=== PATIENT | female | born 1945 | race Caucasian/White ===

== ENCOUNTER 2016-11-03 16:54 | Inpatient (IN) ==
[2016-11-03] MEDS ORDERED: ASPIRIN 325 MG TABLET PO STA (17:26)
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
[2016-11-03] MEDS ORDERED: ASPIRIN 325 MG TABLET ONE (17:52)
[2016-11-03 17:59] LABS: Basophils % 0.4 % (0.0-0.8); Eosinophils # 0.1 10*3/uL (0.0-0.87); Eosinophils % 1.1 % (0.00-10.9); Hematocrit 43.5 VOL% (35.7-47.0); Hemoglobin 15.3 GM/DL (12.0-16.0); Immature Granulocytes % 0.4 %; Immature Granulocytes Absolute 0.03 #; Lymphocytes # 1.7 10*3/uL (1.4-4.0); Lymphocytes % 23.3 % (21.3-54.2); Mean Corpuscular HGB Conc 35.2 GM/DL (32-36); Mean Corpuscular Hemoglobin 31 PG (27-34); Mean Corpuscular Volume 88.8 FL (87-102); Mean Platelet Volume 10.1 FL (9.6-12.0); Monocytes # 0.5 10*3/uL (0.11-0.8); Monocytes % 7.1 % (1.7-12.7); Neutrophils # 5.1 10*3/uL (1.4-7.4); Neutrophils % 67.7 % (38.7-73.9); Platelet Count 182 T/CUMM (130-400); Red Cell Distribution Width 12.9 % (9.3-17.3); White Blood Count 7.5 T/CUMM (4-12)
[2016-11-03 18:23] LABS: Alanine Aminotransferase 28 U/L (13-56); Albumin 4.1 G/DL (3.4-5.0); Alkaline Phosphatase 100 U/L (45-117); Aspartate Amino Transferase 20 U/L (0-37); Blood Urea Nitrogen 10 MG/DL (7-18); Calcium 9.7 MG/DL (8.5-10.1); Glucose 97 MG/DL (74-106); Osmolality,Calculated 284.8 MOS/KG (273-304); Potassium 3.6 MMOL/L (3.5-5.1); Sodium 144 MMOL/L (136-145); Total Protein 7.6 G/DL (6.4-8.3); Troponin I Only < 0.015 NG/ML (0.00-0.045)
[2016-11-03] MEDS ORDERED: DIGOXIN 0.5 MG/2 ML AMP IV STA (18:44)
--- NOTE | 2016-11-03 18:48 | XRay Report ---
Referring Physician: Buster Olvera Exam: XR chest 1V portable Date: November 03, 2016 at 5:32 PM Reason: Shortness of breath Comparison: Chest PA lateral November 26, 2009 Findings: The cardiac silhouette is upper normal in size. The lungs are hyperexpanded, which can be seen in COPD. Minimal scarring is suspected within both lungs, and there is mild stable pleural thickening at the lung apices. However, no focal consolidation, pneumothorax or pleural effusion is identified. No acute osseous process is seen. Impression: Chronic changes are present, including persistent hyperinflation of the lungs which can be seen in COPD. PROCEDURE INTERPRETED AT [facility] DEPARTMENT OF RADIOLOGY Final Report Signed by: Dr. Isaac Holloway
[2016-11-03] MEDS ORDERED: DIGOXIN 0.5 MG/2 ML AMP ONE (19:00)
--- NOTE | 2016-11-03 20:52 | CT Report ---
Referring physician: Karlo Dawkins Exam: CT brain without contrast Date: November 03, 2016 Comparison: None Reason: Acute dizziness, history of atrial fibrillation The patient is an Emergency Department patient on November 03, 2016. Technique: Axial images of the head were obtained without the use of contrast. Total DLP was 942.4 mGy*cm. Findings: No hydrocephalus or midline shift is present. There is no evidence of an acute infarction, recent intracranial hemorrhage or abnormal mass effect. The osseous structures appear intact. The visualized paranasal sinuses and right mastoid air cells are clear. There is fluid within the left mastoid air cells, which could represent mastoiditis. Impression: 1. No acute intracranial process is identified. 2. There is fluid within the left mastoid air cells which may represent mastoiditis. The CT exam was performed using one or more of the following dose reduction techniques: Automated exposure control and adjustment of the mA and/or kV according to patient size. PROCEDURE INTERPRETED AT [facility] DEPARTMENT OF RADIOLOGY Final Report Signed by: Dr. Isaac Holloway
[2016-11-03] MEDS ORDERED: CLINDAMYCIN 300 MG CAPSULE PO STA (21:13)
[2016-11-03] MEDS ORDERED: methylPREDNISolone SOD SUC 125 MG/2 ML VIAL IV STA (21:13)
[2016-11-03] MEDS ORDERED: methylPREDNISolone SOD SUC 125 MG/2 ML VIAL ONE (21:34)
[2016-11-03] MEDS ORDERED: CLINDAMYCIN 300 MG CAPSULE ONE (21:34)
[2016-11-03] MEDS ORDERED: ONDANSETRON 4 MG/2 ML VIAL IV PRN (21:49)
[2016-11-04] MEDS: CLINDAMYCIN INJ 900 MG in PREMIX 1 EACH IV SCH ×3 (03:57→20:59)
--- NOTE | 2016-11-04 07:20 | EKG Report ---
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
[2016-11-04 09:01] LABS: Basophils % 0.2 % (0.0-0.8); Hemoglobin 15.6 GM/DL (12.0-16.0); Immature Granulocytes % 0.5 %; Immature Granulocytes Absolute 0.03 #; Lymphocytes # 0.8 10*3/uL (1.4-4.0); Lymphocytes % 13.2 % (21.3-54.2); Mean Corpuscular HGB Conc 34.7 GM/DL (32-36); Mean Corpuscular Hemoglobin 31 PG (27-34); Mean Platelet Volume 9.8 FL (9.6-12.0); Monocytes # 0.1 10*3/uL (0.11-0.8); Neutrophils # 5.3 10*3/uL (1.4-7.4); Neutrophils % 85.1 % (38.7-73.9); Platelet Count 194 T/CUMM (130-400); Red Cell Distribution Width 13.1 % (9.3-17.3); White Blood Count 6.3 T/CUMM (4-12)
[2016-11-04] MEDS: PANTOPRAZOLE 40 MG TABLET PO SCH (09:01)
[2016-11-04] MEDS: ASPIRIN EC 325 MG TABLET PO SCH (09:01)
--- NOTE | 2016-11-04 09:06 | EKG Report ---
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
[2016-11-04 09:11] LABS: PT Patient Result 10.6 SECS; Partial Thromboplastin Time 25.2 SECS (0-40)
[2016-11-04 09:34] LABS: Troponin I Only < 0.015 NG/ML (0.00-0.045)
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
[2016-11-04] MEDS: LISINOPRIL 5 MG TABLET PO SCH (11:39)
[2016-11-04] MEDS ORDERED: PRAVASTATIN 40 MG TABLET PO SCH (21:00)
[2016-11-05] MEDS: CLINDAMYCIN INJ 900 MG in PREMIX 1 EACH IV SCH ×2 (03:58→12:54)
[2016-11-05 06:16] LABS: Basophils % 0.1 % (0.0-0.8); Eosinophils % 0.5 % (0.00-10.9); Hematocrit 39.8 VOL% (35.7-47.0); Immature Granulocytes % 0.6 %; Immature Granulocytes Absolute 0.05 #; Lymphocytes # 2.1 10*3/uL (1.4-4.0); Lymphocytes % 23.5 % (21.3-54.2); Mean Corpuscular HGB Conc 34.2 GM/DL (32-36); Mean Corpuscular Hemoglobin 31 PG (27-34); Mean Corpuscular Volume 90.7 FL (87-102); Mean Platelet Volume 10.3 FL (9.6-12.0); Monocytes # 0.8 10*3/uL (0.11-0.8); Monocytes % 9.6 % (1.7-12.7); Neutrophils # 5.8 10*3/uL (1.4-7.4); Neutrophils % 65.7 % (38.7-73.9); Platelet Count 165 T/CUMM (130-400); Red Blood Count 4.39 MC/CUMM (3.8-5.5); Red Cell Distribution Width 13.1 % (9.3-17.3)
[2016-11-05 06:32] LABS: Hemoglobin 13.6 GM/DL (12.0-16.0); White Blood Count 8.8 T/CUMM (4-12)
[2016-11-05 07:00] LABS: Calcium 8.3 MG/DL (8.5-10.1); Free T4 (Free Thyroxine) 1.13 NG/DL (0.76-1.46); Magnesium 2.3 MG/DL (1.8-2.4); Osmolality,Calculated 284.1 MOS/KG (273-304); Thyroid Stimulating Hormone 0.827 uIU/ml (0.358-3.74)
[2016-11-05] MEDS: PANTOPRAZOLE 40 MG TABLET PO SCH (08:33)
[2016-11-05] MEDS: LISINOPRIL 5 MG TABLET PO SCH (08:34)
[2016-11-05] MEDS: ASPIRIN EC 325 MG TABLET PO SCH (08:34)
[2016-11-05 11:39] VITALS: BP 137/69
[2016-11-05] MEDS ORDERED: FLECAINIDE 50 MG TABLET PO SCH (13:00)
--- NOTE | 2016-11-05 13:01 | Discharge Summary ---
Hospital Course - Hospital Course Hospital Course: 71-year-old patient with paroxysmal atrial fibrillation. She is been tried on different medications but has issues with some bradycardia. She presented to the emergency room and was given digoxin for atrial fibrillation with rapid ventricular response and on doing so she became bradycardic but sinus rhythm. Since then her heart rates and for the most part been in the 40s to 50s. She is asymptomatic with this. Blood pressures doing well. At issue is been treatment that will not affect her heart rates. Dr. Molina had discussed with her placing her on sotalol but this would adversely affect her heart rates. She then placed on Cardizem CD [address] Molina and her recent visit but did not started even though she got it filled. She been on digoxin. He is supposed to stop the digoxin prior to starting the Cardizem. Again it issue is her heart rates. I had discussed with Dr. Molina yesterday about starting the patient on flecainide at low dose to see how she would respond and if this would work for her paroxysmal atrial fibrillation without causing bradycardia. I am concerned that other medications would affect her rhythm or she cannot afford it. Causes a very big issue for the patient. I did discuss with her and her that she may wind up with a dual-chamber pacemaker. This certainly may be of great benefit with her and allow us to at least use of the medications for treatment. She has a lot of concerns about a pacemaker feeling that he would limit a lot of things but I think she has some incorrect notions about the pacemaker which hopefully I have been able to help him with her concerns. Her PFTs have been done this morning with report is not available. On my looking over them they do not appear to be significant. I did discuss with the patient and her that if she has recurrent symptomatology or problems to let Dr. Molina or let us know here at the hospital. - Time spent with patient Time with patient DS: Greater than 30 minutes Diagnosis - Discharge Diagnosis (1) Bradycardia Status: Acute (2) Paroxysmal atrial fibrillation with rapid ventricular response Status: Acute (3) Hypertension Status: Chronic (4) Hyperlipidemia Status: Chronic (5) Contraindication to anticoagulation therapy Status: Chronic Discharge Plan - Discharge Data Disposition: Disch To Home/Self Care Condition at Discharge: Stable Discharge Diet: advance to your usual diet Activity: resume usual activities as tolerated Hygiene: no restrictions Weight Bearing at Discharge: full weight bearing Driving: no restrictions Contact your physician if you experience:: Shortness of breath - Discharge Medications New Flecainide [Tambocor] 50 mg PO BID #60 tablet Clindamycin Cap [Cleocin Cap] 300 mg PO Q8HR #30 capsule predniSONE TAB [PredniSONE] 20 mg PO DAILY #15 tablet Continue Pravastatin [Pravachol] 20 mg PO BEDTIME HYDROcodone/ACETAMIN 10-325 [[place] 10-325] 1 tablet PO BID PRN PRN Reason: Pain Lisinopril 5 mg PO DAILY Aspirin EC Tab 81 mg PO DAILY Discontinued Digoxin Tab [Lanoxin Tab] 1 tablet PO AC LUNCH - Follow Up or Referral Follow Up: Jonna Molina MD [Physician] - 2 Weeks (Follow Dr. Molina in 2 weeks with ECG) - Forms/Instructions Exam - Constitutional Vitals: Period Temp Pulse Resp BP Sys/Hernandez Pulse Ox Last 24 Hr 96.0 F-97.5 F 50-64 16-18 118-143/55-77 97-99 Exam: General appearance: normal weight, no acute distress HEENT exam: normal inspection, atraumatic. She has marked decreased auditory acuity. Neck exam: normal inspection no JVD. No carotid bruit. Trachea is in midline Respiratory/lungs exam: clear to auscultation bilaterally good air movement. Cardiovascular exam: regular rate and rhythm, she has though bradycardic, no murmur or gallop or rub. No precordial lift. Chest wall exam: nontender GI/Abdominal exam: normal bowel sounds, soft, nontender, no abdominal bruits or pulsatile masses. Extremeties/musculoskeletal: normal inspection without edema or cyanosis. Neurological exam: alert, oriented X3, no focal deficits Psychiatric exam: normal affect, normal mood. Cognitive function is grossly normal. Skin exam: normal color, warm Discharge Results Procedures and tests throughout hospitalization: Pending Orders 11/06/16 04:00 BMP w/ Mg [Basic Metabolic Panel w/Mg] IN AM CBC [Comp Blood Count Auto Diff] IN AM Labs on day of discharge: Labs from last 24 hours 11/05/16 11/05/16 05:46 05:46 WBC 8.8 D RBC 4.39 Hgb 13.6 D Hct 39.8 MCV 90.7 MCH 31 MCHC 34.2 RDW 13.1 Plt Count 165 MPV 10.3 Neut % (Auto) 65.7 Lymph % (Auto) 23.5 [place] % (Auto) 9.6 Eos % (Auto) 0.5 Baso % (Auto) 0.1 Neut # (Auto) 5.8 Lymph # (Auto) 2.1 [place] # (Auto) 0.8 Eos # (Auto) 0.0 Baso # (Auto) 0.0 Immature Gran % 0.6 Nucleated RBC % 0.0 Immature Gran # 0.05 Nucleated RBCs # 0.00 Sodium 142 Potassium 4.0 Chloride 104 Carbon Dioxide 30 Anion Gap 12.0 BUN 18 Creatinine 0.80 GFR Calculation 68 BUN/Creatinine Ratio 22.00 H Glucose 104 Calculated Osmolality 284.1 Calcium 8.3 L Magnesium 2.3 Free T4 1.13 TSH 3rd Generation 0.827 DS: Provider Date of admission: 11/03/16 21:47 Primary care physician: . No PCP Attending physician on admission: Jonna Molina, Discharging clinician: Nikki Silva Expected date of discharge: 11/05/16
== END 2016-11-05 14:46 | disposition home or self-care (01) | DRG 310 ==
LOC: N.ED 16:54 → N.EDINP 21:47 → N.TELEN 23:00
PROVIDERS: ADMIT Internal Medicine Cardiovascular Disease; ATTEND Internal Medicine Cardiovascular Disease

== ENCOUNTER 2017-06-25 20:46 | Inpatient (IN) ==
[2017-06-25] MEDS ORDERED: ONDANSETRON 4 MG/2 ML VIAL IV STA (21:29)
[2017-06-25] MEDS ORDERED: SODIUM CHLORIDE 0.9% 500 ML IV STA (21:29)
[2017-06-25] MEDS ORDERED: NITROGLYCERIN 2% OINT 1 INCH/GM PACK TOP STA (21:29)
[2017-06-25] MEDS ORDERED: METOPROLOL TARTRATE 25 MG TABLET PO STA (21:29)
[2017-06-25] MEDS ORDERED: MORPHINE 2 MG/1 ML SYRINGE IV STA (21:29)
[2017-06-25] MEDS ORDERED: ASPIRIN 325 MG TABLET PO STA (21:29)
[2017-06-25] MEDS ORDERED: NITROGLYCERIN 2% OINT 1 INCH/GM PACK TOP ONE (21:55)
[2017-06-25] MEDS ORDERED: MORPHINE 2 MG/1 ML SYRINGE ONE (21:55)
[2017-06-25] MEDS ORDERED: METOPROLOL TARTRATE 25 MG TABLET ONE (21:55)
[2017-06-25] MEDS ORDERED: ONDANSETRON 4 MG/2 ML VIAL ONE (21:55)
[2017-06-25] MEDS ORDERED: ASPIRIN 325 MG TABLET ONE (21:56)
[2017-06-25 22:00] LABS: Basophils # 0.1 10*3/uL (0.0-0.2); Basophils % 0.7 % (0.0-0.8); Eosinophils # 0.1 10*3/uL (0.0-0.87); Eosinophils % 1.3 % (0.00-10.9); Hematocrit 39.6 VOL% (35.7-47.0); Hemoglobin 13.1 GM/DL (12.0-16.0); Immature Granulocytes % 0.3 %; Immature Granulocytes Absolute 0.02 #; Lymphocytes # 1.7 10*3/uL (1.4-4.0); Lymphocytes % 25.4 % (21.3-54.2); Mean Corpuscular HGB Conc 33.1 GM/DL (32-36); Mean Corpuscular Hemoglobin 29 PG (27-34); Mean Corpuscular Volume 88.6 FL (87-102); Mean Platelet Volume 10.1 FL (9.6-12.0); Monocytes # 0.5 10*3/uL (0.11-0.8); Neutrophils # 4.4 10*3/uL (1.4-7.4); Neutrophils % 65.3 % (38.7-73.9); Platelet Count 211 T/CUMM (130-400); Red Blood Count 4.47 MC/CUMM (3.8-5.5); Red Cell Distribution Width 11.9 % (9.3-17.3); White Blood Count 6.7 T/CUMM (4-12)
[2017-06-25 22:20] LABS: Alanine Aminotransferase 20 U/L (13-56); Albumin 3.9 G/DL (3.4-5.0); Alkaline Phosphatase 107 U/L (45-117); Aspartate Amino Transferase 18 U/L (0-37); Bilirubin,Total < 0.39 MG/DL (0.2-1.0); Blood Urea Nitrogen 18 MG/DL (7-18); Calcium 9.4 MG/DL (8.5-10.1); Glucose 93 MG/DL (74-106); Osmolality,Calculated 282.3 MOS/KG (273-304); Potassium 3.7 MMOL/L (3.5-5.1); Sodium 141 MMOL/L (136-145); Total Protein 6.8 G/DL (6.4-8.3); Troponin I Only < 0.015 NG/ML (0.00-0.045)
[2017-06-25 22:23] LABS: PT Patient Result 10.1 SECS
[2017-06-25 22:33] LABS: Apearance,Urine CLEAR (Clear); Bilirubin,Urine Negative (Negative); Blood, Urine Negative (Negative); Glucose,Urine (UA) Negative (Negative); Ketones,Urine Negative (Negative); Mucus,Urine Occasional /LPF (Occasional); Nitrite,Urine Negative (Negative); Protein,Urine Negative; Urine Color Straw (Yellow); Urine Specific Gravity 1.005 (1.001-1.035); Urine Urobilinogen < 2.0 EU/DL (0.2-1.0); WBC,Urine 6 /HPF (0-6)
[2017-06-25] MEDS ORDERED: cefTRIAXone 1,000 MG in SODIUM CHLORIDE 0.9% 100 ML IV STA (23:11)
[2017-06-25] MEDS ORDERED: cefTRIAXone 1,000 MG VIAL ONE (23:25)
[2017-06-26] MEDS ORDERED: ONDANSETRON 4 MG/2 ML VIAL IV PRN (01:31)
[2017-06-26] MEDS ORDERED: MORPHINE 2 MG/1 ML SYRINGE IV PRN (01:31)
[2017-06-26] MEDS ORDERED: MAGNESIUM SULF RIDER 4 GM in PREMIX 1 EACH IV PRN (01:31)
[2017-06-26] MEDS ORDERED: POTASSIUM CHLORIDE 20 MEQ TABLET PO PRN (01:31)
[2017-06-26] MEDS ORDERED: MAGNESIUM SULF RIDER 2 GM in PREMIX 1 EACH IV PRN (01:31)
[2017-06-26 04:41] LABS: Basophils % 0.7 % (0.0-0.8); Eosinophils # 0.1 10*3/uL (0.0-0.87); Eosinophils % 1.1 % (0.00-10.9); Hematocrit 35.7 VOL% (35.7-47.0); Hemoglobin 11.9 GM/DL (12.0-16.0); Immature Granulocytes % 0.2 %; Immature Granulocytes Absolute 0.01 #; Lymphocytes # 1.5 10*3/uL (1.4-4.0); Lymphocytes % 25.2 % (21.3-54.2); Mean Corpuscular HGB Conc 33.3 GM/DL (32-36); Mean Corpuscular Hemoglobin 30 PG (27-34); Mean Corpuscular Volume 88.6 FL (87-102); Mean Platelet Volume 10.7 FL (9.6-12.0); Monocytes # 0.5 10*3/uL (0.11-0.8); Neutrophils % 64.8 % (38.7-73.9); Platelet Count 215 T/CUMM (130-400); Red Blood Count 4.03 MC/CUMM (3.8-5.5); Red Cell Distribution Width 11.9 % (9.3-17.3); White Blood Count 6.1 T/CUMM (4-12)
[2017-06-26 05:33] LABS: Alanine Aminotransferase 17 U/L (13-56); Albumin 3.5 G/DL (3.4-5.0); Alkaline Phosphatase 92 U/L (45-117); Aspartate Amino Transferase 14 U/L (0-37); Bilirubin,Total < 0.39 MG/DL (0.2-1.0); Blood Urea Nitrogen 15 MG/DL (7-18); Calcium 8.5 MG/DL (8.5-10.1); Cholesterol 156 MG/DL (50-200); Glucose 97 MG/DL (74-106); HDL Cholesterol 63 MG/DL (40-60); Magnesium 2.1 MG/DL (1.8-2.4); Osmolality,Calculated 281.3 MOS/KG (273-304); Potassium 4.2 MMOL/L (3.5-5.1); Risk Ratio 2.48; Sodium 141 MMOL/L (136-145); Triglycerides 56 MG/DL (2-150); VLDL CHOLESTEROL 11.2 MG/DL
[2017-06-26] MEDS: cefTRIAXone 1,000 MG in SYRINGE 1 EACH IV SCH (05:39)
[2017-06-26] MEDS: SODIUM CHLORIDE 0.9% 1,000 ML IV SCH (05:39)
[2017-06-26] MEDS ORDERED: FLECAINIDE 50 MG TABLET PO SCH (09:00)
[2017-06-26] MEDS: LISINOPRIL 5 MG TABLET PO SCH (09:49)
[2017-06-26] MEDS: PANTOPRAZOLE 40 MG TABLET PO SCH (09:49)
[2017-06-26] MEDS: SOTALOL 80 MG TABLET PO SCH ×3 (14:11→21:28)
[2017-06-26] MEDS: OMEGA 3 ACID ETHYL ESTERS 1 GM CAPSULE PO SCH (17:24)
[2017-06-26] MEDS: MAGNESIUM CHLORIDE 64 MG TABLET PO SCH (17:24)
[2017-06-26] MEDS: CHOLECALCIFEROL 1,000 UNIT TABLET PO SCH (17:24)
[2017-06-26] MEDS: PRAVASTATIN 20 MG TABLET PO SCH (21:28)
[2017-06-26] MEDS: ASPIRIN EC 81 MG TABLET PO SCH (21:28)
[2017-06-27] MEDS: SODIUM CHLORIDE 0.9% 1,000 ML IV SCH (03:02)
[2017-06-27] MEDS: cefTRIAXone 1,000 MG in SYRINGE 1 EACH IV SCH (05:21)
[2017-06-27] MEDS: PANTOPRAZOLE 40 MG TABLET PO SCH (09:23)
[2017-06-27] MEDS: LISINOPRIL 5 MG TABLET PO SCH (09:24)
[2017-06-27] MEDS: SOTALOL 80 MG TABLET PO SCH ×2 (09:24→21:25)
[2017-06-27] MEDS: CHOLECALCIFEROL 1,000 UNIT TABLET PO SCH (17:07)
[2017-06-27] MEDS: OMEGA 3 ACID ETHYL ESTERS 1 GM CAPSULE PO SCH (17:08)
[2017-06-27] MEDS: MAGNESIUM CHLORIDE 64 MG TABLET PO SCH (17:08)
[2017-06-27] MEDS: ASPIRIN EC 81 MG TABLET PO SCH (21:25)
[2017-06-27] MEDS: PRAVASTATIN 20 MG TABLET PO SCH (21:25)
[2017-06-28] MEDS: cefTRIAXone 1,000 MG in SYRINGE 1 EACH IV SCH (05:37)
[2017-06-28] MEDS: LISINOPRIL 5 MG TABLET PO SCH (08:17)
[2017-06-28] MEDS: SOTALOL 80 MG TABLET PO SCH ×2 (08:17→22:16)
[2017-06-28] MEDS: PANTOPRAZOLE 40 MG TABLET PO SCH (08:17)
[2017-06-28] MEDS ORDERED: ceFAZolin 1,000 MG VIAL IRRIG ONE (11:20)
[2017-06-28] MEDS ORDERED: ceFAZolin 1,000 MG in SYRINGE 1 EACH IV ONE (11:20)
[2017-06-28] MEDS: MAGNESIUM CHLORIDE 64 MG TABLET PO SCH (17:43)
[2017-06-28] MEDS: CHOLECALCIFEROL 1,000 UNIT TABLET PO SCH (17:43)
[2017-06-28] MEDS: OMEGA 3 ACID ETHYL ESTERS 1 GM CAPSULE PO SCH (17:43)
[2017-06-28] MEDS: ASPIRIN EC 81 MG TABLET PO SCH (22:16)
[2017-06-28] MEDS: PRAVASTATIN 20 MG TABLET PO SCH (22:16)
[2017-06-29] MEDS: cefTRIAXone 1,000 MG in SYRINGE 1 EACH IV SCH (02:59)
[2017-06-29 05:37] LABS: Basophils % 0.7 % (0.0-0.8); Eosinophils # 0.1 10*3/uL (0.0-0.87); Eosinophils % 1.8 % (0.00-10.9); Hematocrit 37.1 VOL% (35.7-47.0); Hemoglobin 12.1 GM/DL (12.0-16.0); Immature Granulocytes % 0.2 %; Immature Granulocytes Absolute 0.01 #; Lymphocytes # 1.6 10*3/uL (1.4-4.0); Lymphocytes % 26.5 % (21.3-54.2); Mean Corpuscular HGB Conc 32.6 GM/DL (32-36); Mean Corpuscular Hemoglobin 29 PG (27-34); Mean Corpuscular Volume 89.6 FL (87-102); Mean Platelet Volume 10.7 FL (9.6-12.0); Monocytes # 0.5 10*3/uL (0.11-0.8); Monocytes % 8.6 % (1.7-12.7); Neutrophils # 3.8 10*3/uL (1.4-7.4); Neutrophils % 62.2 % (38.7-73.9); Platelet Count 191 T/CUMM (130-400); Red Blood Count 4.14 MC/CUMM (3.8-5.5); Red Cell Distribution Width 11.9 % (9.3-17.3); White Blood Count 6.2 T/CUMM (4-12)
[2017-06-29 06:11] LABS: Calcium 8.9 MG/DL (8.5-10.1); Magnesium 2.2 MG/DL (1.8-2.4); Osmolality,Calculated 284.1 MOS/KG (273-304); Potassium 4.1 MMOL/L (3.5-5.1)
[2017-06-29] MEDS ORDERED: ceFAZolin 1,000 MG VIAL IRRIG ONE (06:30)
[2017-06-29] MEDS ORDERED: ceFAZolin 1,000 MG in SYRINGE 1 EACH IV ONE (06:30)
[2017-06-29] MEDS ORDERED: fentaNYL 100 MCG/2 ML VIAL ONE (07:44)
[2017-06-29] MEDS ORDERED: MIDAZOLAM 2 MG/2 ML VIAL ONE (07:44)
[2017-06-29] MEDS ORDERED: HEPARIN/NACL 0.9% 2 UNITS/ML 1,000 ML IV ONE (07:44)
[2017-06-29] MEDS ORDERED: LIDOCAINE 1% 20 ML VIAL ONE (07:51)
[2017-06-29] MEDS ORDERED: ceFAZolin 1,000 MG VIAL ONE (07:54)
[2017-06-29] MEDS ORDERED: TISSUE ADHESIVE 1 EACH APPLICATOR TOP ONE (08:41)
[2017-06-29] MEDS: SOTALOL 80 MG TABLET PO SCH ×3 (09:31→20:25)
[2017-06-29] MEDS: LISINOPRIL 5 MG TABLET PO SCH (10:10)
[2017-06-29] MEDS: PANTOPRAZOLE 40 MG TABLET PO SCH (10:11)
[2017-06-29] MEDS: oxyCODONE/ACETAMINOPHEN 5-325 MG TABLET PO PRN ×2 (13:50→20:22)
[2017-06-29] MEDS: ceFAZolin 1,000 MG in SYRINGE 1 EACH IV SCH (15:11)
[2017-06-29] MEDS ORDERED: ZALEPLON 5 MG CAPSULE PO PRN (17:49)
[2017-06-29] MEDS: MAGNESIUM CHLORIDE 64 MG TABLET PO SCH (18:20)
[2017-06-29] MEDS: OMEGA 3 ACID ETHYL ESTERS 1 GM CAPSULE PO SCH (18:20)
[2017-06-29] MEDS: CHOLECALCIFEROL 1,000 UNIT TABLET PO SCH (18:20)
[2017-06-29] MEDS: ASPIRIN EC 81 MG TABLET PO SCH (20:22)
[2017-06-29] MEDS: PRAVASTATIN 20 MG TABLET PO SCH (20:22)
[2017-06-30] MEDS: ceFAZolin 1,000 MG in SYRINGE 1 EACH IV SCH (00:27)
[2017-06-30 05:58] LABS: Basophils % 0.3 % (0.0-0.8); Eosinophils # 0.1 10*3/uL (0.0-0.87); Eosinophils % 1.4 % (0.00-10.9); Hematocrit 36.9 VOL% (35.7-47.0); Hemoglobin 12.4 GM/DL (12.0-16.0); Immature Granulocytes % 0.3 %; Immature Granulocytes Absolute 0.02 #; Lymphocytes # 1.6 10*3/uL (1.4-4.0); Lymphocytes % 28.6 % (21.3-54.2); Mean Corpuscular HGB Conc 33.6 GM/DL (32-36); Mean Corpuscular Hemoglobin 29 PG (27-34); Mean Corpuscular Volume 86.6 FL (87-102); Mean Platelet Volume 10.5 FL (9.6-12.0); Monocytes # 0.6 10*3/uL (0.11-0.8); Monocytes % 9.8 % (1.7-12.7); Neutrophils # 3.4 10*3/uL (1.4-7.4); Neutrophils % 59.6 % (38.7-73.9); Platelet Count 181 T/CUMM (130-400); Red Blood Count 4.26 MC/CUMM (3.8-5.5); Red Cell Distribution Width 11.9 % (9.3-17.3); White Blood Count 5.7 T/CUMM (4-12)
[2017-06-30 06:25] LABS: Calcium 8.7 MG/DL (8.5-10.1); Magnesium 2.2 MG/DL (1.8-2.4); Osmolality,Calculated 276.5 MOS/KG (273-304); Potassium 3.9 MMOL/L (3.5-5.1)
[2017-06-30 07:24] VITALS: BP 121/70
[2017-06-30] MEDS: PANTOPRAZOLE 40 MG TABLET PO SCH (08:41)
[2017-06-30] MEDS: SOTALOL 80 MG TABLET PO SCH (08:41)
[2017-06-30] MEDS: LISINOPRIL 5 MG TABLET PO SCH (08:41)
== END 2017-06-30 11:48 | disposition home or self-care (01) | DRG 244 ==
LOC: N.ED 20:46 → N.EDINP 23:39 → N.TELEN 06-26 00:22
PROVIDERS: ADMIT Internal Medicine Cardiovascular Disease; ATTEND Internal Medicine Cardiovascular Disease